=== PATIENT | female | born 1985 | race Caucasian/White ===

== ENCOUNTER 2019-10-22 21:36 | Emergency (ER) | payer MEDICAID ==
[~2019-10-22] VITALS: Ht 160 cm; Wt 70.8 kg
[~2019-10-22 21:36] MED LIST: ACET-8386 PO
[2019-10-22 22:19] VITALS: BP 132/86
--- NOTE | 2019-10-22 22:26 | NUR ---
AMBULATED TO BED 1 WITH STEADY GAIT.
--- NOTE | 2019-10-22 22:26 | NUR ---
URINE AT BEDSIDE.
--- NOTE | 2019-10-22 22:28 | NUR ---
34 Y/O FEMALE PRESENTS TO ER WITH C/O SUPRAPUBIC PAIN X 2-3 MONTHS. 01/08 PAIN, LMP 06/02/19. DENIES NAUSEA, VOMITING, DIARRHEA, COUGH, SOB. VSS, R/R EQUAL, AND UNLABORED. SIDE RAIL X1, BED IN LOW POSITION, WILL CONTINUE TO MONITOR. NKDA DENIES PMH
[2019-10-22 23:01] LABS: BASOPHILS # (AUTO) 0.1 K/uL (0.00-0.22); BASOPHILS % (AUTO) 0.6 % (0.0-2.0); EOSINOPHILS # (AUTO) 0.1 K/uL (0-0.4); EOSINOPHILS % (AUTO) 0.8 % (0.0-4.0); HEMATOCRIT 39.4 % (36-48); HEMOGLOBIN 13.4 g/dL (12.0-16.0); LYMPHOCYTES # (AUTO) 3.2 K/uL (2.5-16.5); LYMPHOCYTES % (AUTO) 25.4 % (20.5-51.1); MEAN CORPUSCULAR HEMOGLOBIN 31 pg (27-31); MEAN CORPUSCULAR HGB CONC 34 g/dL (33-37); MEAN CORPUSCULAR VOLUME 92.5 fL (80-94); MONOCYTES # (AUTO) 0.7 K/uL (0.8-1.0); MONOCYTES % (AUTO) 5.9 % (1.7-9.3); NEUTROPHILS # (AUTO) 8.5 K/uL (1.8-7.7); NEUTROPHILS % (AUTO) 67.3 % (42.2-75.2); PLATELET COUNT (AUTO) 195 K/uL (140-450); RED BLOOD CELL COUNT(AUTO) 4.26 MIL/uL (4.20-5.40); RED CELL DISTRIBUTION WIDTH 13.1 % (11.6-13.7); WHITE BLOOD COUNT (AUTO) 12.6 K/uL (4.8-10.8)
[2019-10-22] MEDS ORDERED: ACETAMINOPHEN 325 MG TAB PO ONE (23:05)
[2019-10-22 23:12] LABS: APPEARANCE,URINE CLOUDY (CLEAR); BILIRUBIN,URINE NEGATIVE (NEGATIVE); BLOOD, URINE NEGATIVE (NEGATIVE); COLOR,URINE YELLOW (YELLOW); LEUKOCYTE ESTERASE ,URINE TRACE (NEGATIVE); NITRITE, URINE NEGATIVE (NEGATIVE); UGLUCOSE NEGATIVE (NEGATIVE)
[2019-10-22 23:23] LABS: RBC,URINE NONE SEEN /HPF (0-5); WBC,URINE 0-5 /HPF (0-5)
[2019-10-22 23:26] LABS: ALBUMIN 3.2 g/dL (3.4-5.0); ANION GAP 15.6 (8-16); CARBON DIOXIDE 22.5 mmol/L (21-32); CREATININE 0.8 mg/dL (0.6-1.3); POTASSIUM 3.1 mmol/L (3.5-5.1); TOTAL BILIRUBIN 0.3 mg/dL (0.0-1.0)
--- NOTE | 2019-10-23 00:30 | NUR ---
PT RESTING IN BED QUIETLY. VSS, R/R EQUAL, AND UNLABORED. SIDE RAIL X1, BED IN LOW POSITION, WILL CONTINUE TO MONITOR.
[2019-10-23 01:47] VITALS: BP 127/64
--- NOTE | 2019-10-23 01:47 | NUR ---
Patient discharged with v/s stable. Written and verbal after care instructions given and explained. Patient alert, oriented and verbalized understanding of instructions. Ambulatory with steady gait. All questions addressed prior to discharge. ID band removed. Patient advised to follow up with PMD. Rx of [facility]ITIAMINS given. Patient educated on indication of medication including possible reaction and side effects. Opportunity to ask questions provided and answered.
== END 2019-10-23 01:47 | disposition home or self-care (01) ==
LOC: MED 21:36
DX: O99.89 Other specified diseases and conditions complicating pregnancy, childbirth and the puerperium (principal); O99.280 Endocrine, nutritional and metabolic diseases complicating pregnancy, unspecified trimester; O25.10 Malnutrition in pregnancy, unspecified trimester; R71.8 Other abnormality of red blood cells; Z3A.20 20 weeks gestation of pregnancy
CPT/HCPCS: 36415; 76817; 80053; 81001; 81025; 84702; 85025; 86900; 86901; 99284; Q0092; 81002; 99283

== ENCOUNTER 2020-12-24 20:51 | Emergency (ER) | payer MEDICAID ==
[~2020-12-24] VITALS: Ht 160 cm; Wt 80.7 kg
[2020-12-24 21:39] VITALS: BP 130/74
--- NOTE | 2020-12-24 21:40 | NUR ---
SEEN AND EXAMINED BY ROJELIO WITH ORDERS, CARRIED OUT
--- NOTE | 2020-12-24 21:48 | NUR ---
MEDICATED PER ERMDS ORDER, TOLERATED WELL.
[2020-12-24] MEDS: IBUPROFEN 600 MG TAB PO ONE (22:08)
[2020-12-24] MEDS ORDERED: IBUP-2213 PO (22:30)
[2020-12-24 23:04] VITALS: BP 130/74
== END 2020-12-24 22:58 ==
LOC: MED 20:51
DX: S93.402A Sprain of unspecified ligament of left ankle, initial encounter (principal); W19.XXXA Unspecified fall, initial encounter; Y93.89 Activity, other specified; Y92.89 Other specified places as the place of occurrence of the external cause; Y99.8 Other external cause status
CPT/HCPCS: 73610; 73630; 99284

== ENCOUNTER 2022-02-18 16:40 | Emergency (ER) | payer MEDICAID ==
[~2022-02-18] VITALS: Ht 144.8 cm; Wt 89.8 kg
[~2022-02-18 16:40] MED LIST changes: +IBUP-2213 PO
[2022-02-18 16:58] VITALS: BP 131/68
--- NOTE | 2022-02-18 17:14 | NUR ---
C/O RIGHT PELVIC PAIN,N/V X3DAYS, DENIES ANY MEDICATION FOR PAIN, DENIES DIARRHEA, DENIES ANY ABD PAIN ALLERGY: PCN PMH: DENIES
--- NOTE | 2022-02-18 17:42 | NUR ---
DR MARCELINO AT BEDSIDE FOR EVAL
[2022-02-18 17:59] LABS: BASOPHILS # (AUTO) 0.1 K/uL (0.00-0.22); BASOPHILS % (AUTO) 1.1 % (0.0-2.0); EOSINOPHILS # (AUTO) 0.2 K/uL (0-0.4); EOSINOPHILS % (AUTO) 2.1 % (0.0-4.0); HEMATOCRIT 42.1 % (36-48); HEMOGLOBIN 14.8 g/dL (12.0-16.0); LYMPHOCYTES # (AUTO) 2.6 K/uL (2.5-16.5); LYMPHOCYTES % (AUTO) 29.7 % (20.5-51.1); MEAN CORPUSCULAR HEMOGLOBIN 32 pg (27-31); MEAN CORPUSCULAR HGB CONC 35 g/dL (33-37); MEAN CORPUSCULAR VOLUME 90.2 fL (80-94); MONOCYTES # (AUTO) 0.6 K/uL (0.8-1.0); NEUTROPHILS # (AUTO) 5.2 K/uL (1.8-7.7); NEUTROPHILS % (AUTO) 60.1 % (42.2-75.2); PLATELET COUNT (AUTO) 195 K/uL (140-450); RED BLOOD CELL COUNT(AUTO) 4.67 MIL/uL (4.20-5.40); RED CELL DISTRIBUTION WIDTH 12.7 % (11.6-13.7); WHITE BLOOD COUNT (AUTO) 8.7 K/uL (4.8-10.8)
[2022-02-18 18:19] LABS: ALBUMIN 3.7 g/dL (3.4-5.0); ANION GAP 13.1 (8-16); CARBON DIOXIDE 25.9 mmol/L (21-32); CREATININE 1.2 mg/dL (0.6-1.3); TOTAL BILIRUBIN 0.8 mg/dL (0.0-1.0)
--- NOTE | 2022-02-18 18:42 | NUR ---
US AT BEDSIDE
--- NOTE | 2022-02-18 19:16 | NUR ---
DR MARCELINO AT BEDSIDE
--- NOTE | 2022-02-18 19:18 | NUR ---
Pt report given to NITZA FLORES. Transfer of care at this time.
[2022-02-18] MEDS ORDERED: KETOROLAC 15 MG/ML VIAL IM ONE (19:40)
--- NOTE | 2022-02-18 19:49 | NUR ---
pt is awake and alert, reports 7/10 pelvic pain. pt medicated per orders. given a cup of water per request. all needs met at this time. bed locked in lowest position, side railsx2 for safety.
[2022-02-18] MEDS ORDERED: ACET-8757 PO (19:52)
[2022-02-18 20:02] VITALS: BP 115/73
== END 2022-02-18 20:02 | disposition home or self-care (01) ==
LOC: MED 16:40
DX: R10.2 Pelvic and perineal pain (principal); Z79.891 Long term (current) use of opiate analgesic; Z79.899 Other long term (current) drug therapy; Z88.0 Allergy status to penicillin
CPT/HCPCS: 36415; 76830; 80053; 81002; 81025; 85025; 96372; 99284; J1885; Q0092